=== PATIENT | male | born 1940 | race Caucasian/White ===

== ENCOUNTER → 2016-08-29 | Outpatient (CLI) | payer BC ==
[~2016-08-29] MED LIST: ALBU18002 INH; ALBUAER2 INH; ASPI81TA28 PO; CYAN10005 PO; FLV1 PO; FRS/40 PO; IPRA1AER2 INH; MAGN400T6 PO; MAGNESIUM OXIDE PO; METO-217 PO; MULT-506 PO; NTRGSL/4 SL; OMEG10007 PO; ONDA8TAB7 PO; PANT1TAB48 PO; POTA20TA16 PO; PRED20TA PO; Prednisone PO; RANI300T2 PO; RANO500T PO; SIMV20TA2 PO; SYMIN160 INH; TIOT1AER2 INH; VALA500T60 PO; VNTHFA/IN INH; iron tab
[2016-08-29 12:23] LABS: BASO % 0.4 %; BASO ABS # 0.03 K/uL (0-0.2); COMPLETE YES; EOS % 0.5 %; HEMATOCRIT 44.5 % (42-52); IG% 0.3 %; LYMPH % 18.8 %; LYMPH ABS # 1.39 K/uL (1.2-3.4); MEAN CELL VOLUME 90.4 fL (80-100); MEAN CORPUSCULAR HEMOGLOBIN 32.7 pg (25-34); MEAN CORPUSCULAR HGB CONC 36.2 g/dl (32-36); MONO % 9.2 %; NEUT % 70.8 %; PLATELET COUNT 230 K/uL (130-400); RED BLOOD COUNT 4.92 M/uL (4.7-6.1)
[2016-08-29 12:34] LABS: ALT/SGPT 28 U/L (12-78); BLOOD UREA NITROGEN 26 mg/dl (7-18); BUN/CREATININE RATIO 17.1 (10-20); CALCIUM 9.7 mg/dl (8.5-10.1); CARBON DIOXIDE 21 mmol/L (21-32); CHLORIDE 105 mmol/L (98-107); GLUCOSE 130 mg/dl (70-99); POTASSIUM 3.7 mmol/L (3.5-5.1); SODIUM 139 mmol/L (136-145)
[2016-08-29 12:41] LABS: ALB/GLOB RATIO 1.2 (0.9-2); ALKALINE PHOSPHATASE 43 U/L (45-117); AST/SGOT 12 U/L (15-37)
== END | disposition home or self-care (01) ==
LOC: C.LABBFT 10:12
PROVIDERS: ATTEND Internal Medicine Hematology & Oncology
DX: C34.11 Malignant neoplasm of upper lobe, right bronchus or lung (principal)

== ENCOUNTER → 2016-08-29 | Outpatient (CLI) | payer BC ==
--- NOTE | 2016-08-29 11:52 | DIAGNOSTIC IMAGING REPORT ---
CHEST 2 VIEWS ROUTINE CLINICAL HISTORY: Non-small cell lung cancer. COMPARISON STUDY: Chest CT May 20, 2016 and chest radiograph July 05, 2016. FINDINGS: A left internal jugular [id number] remains in place. The size of the heart is normal. There is no pneumothorax or pleural effusion. Severe emphysema is again noted. There is no consolidation to suggest pneumonia. The irregular right perihilar density is unchanged. IMPRESSION: 1. No acute cardiopulmonary findings. 2. No change in the irregular right perihilar density. 3. Severe emphysema. Electronically signed by: Fran Rothman M.D. 08/29/2016 11:51 AM Dictated Date/Time: 08/29/2016 11:49 AM
== END | disposition home or self-care (01) ==
LOC: C.RAD 10:48
PROVIDERS: ATTEND Internal Medicine Hematology & Oncology
DX: C34.11 Malignant neoplasm of upper lobe, right bronchus or lung (principal); J43.9 Emphysema, unspecified

== ENCOUNTER → 2016-10-27 | Outpatient (CLI) | payer BC ==
--- NOTE | 2016-10-27 10:50 | DIAGNOSTIC IMAGING REPORT ---
CHEST CT WITHOUT CONTRAST CT DOSE: 994.03 mGy.cm HISTORY: Lung carcinoma LUNG CA NO ORAL OR IV, PT REFUSED ORAL CONTRAST TECHNIQUE: Multiaxial CT images of the chest were performed without contrast. COMPARISON: None. FINDINGS: Emphysematous change considered baseline in this patient throughout both hemithoraces. Improving bibasilar peripheral interstitial and/or fibrotic change. Slight improvement in the patient's right hilar mass with a decrease in maximum dimension to approximately 2.0 cm. This is diminished from 2.4 cm. Atelectatic change anterior aspect right middle lobe medially is improved. Minimal parenchymal nodularity is nonprogressive. Several hepatic cysts as well as renal cysts appear unchanged. Placement of an abdominal aortic stent with intraluminal catheters are present IMPRESSION: 1. Mild improvement of the patient's right hilar mass with improvement perihilar fibrotic and postobstructive change. Improving bibasilar interstitial and peripheral reticular nodular-type change. Stable minimal parenchymal nodularity Electronically signed by: Zacarias Wong M.D. 10/27/2016 10:49 AM Dictated Date/Time: 10/27/2016 10:42 AM
--- NOTE | 2016-10-27 10:52 | DIAGNOSTIC IMAGING REPORT ---
CT SCAN OF THE ABDOMEN AND PELVIS WITHOUT CONTRAST CLINICAL HISTORY: Non-small cell lung carcinoma COMPARISON STUDY: 05/20/2016 TECHNIQUE: CT scan of the abdomen and pelvis was performed from the lung bases to the proximal femurs. Images are reviewed in the axial, sagittal, and coronal planes. IV contrast was not administered for this examination. CT DOSE: FINDINGS: Lower chest: There is underlying pulmonary emphysema. Liver: There are multiple hypodense hepatic lesions which approach water attenuation likely represent cysts. Gallbladder: Unremarkable. Spleen: Normal in size and attenuation. Pancreas: Unremarkable. Adrenal glands: Unremarkable. Kidneys: Bilateral renal calcifications are likely vascular. There are multiple right renal cysts. The largest measures 6.7 cm. Bowel: There are no transition zones indicate bowel obstruction. The appendix appears normal. There is diverticulosis. There are no acute peridiverticular inflammatory changes. Peritoneum: There is no intraperitoneal free air or abdominal ascites. There is a fat-containing left inguinal hernia. Vasculature: There is an abdominal aortic aneurysm status post aortoiliac stent graft repair.. Adenopathy: None. Pelvic viscera: There are multiple surgical clips in the pelvis. The patient appears be status post a prostatectomy. Skeletal structures: No destructive osseous lesions are seen. IMPRESSION: No evidence of metastatic disease given the limitations of a noncontrast study. Electronically signed by: Fabián Chandler M.D. 10/27/2016 10:51 AM Dictated Date/Time: 10/27/2016 10:46 AM
== END | disposition home or self-care (01) ==
LOC: C.CTS 10:00
PROVIDERS: ATTEND Internal Medicine Hematology & Oncology
DX: C34.11 Malignant neoplasm of upper lobe, right bronchus or lung (principal)

== ENCOUNTER → 2016-10-31 | Outpatient (CLI) | payer BC ==
[2016-10-31 12:11] LABS: BASO ABS # 0.05 K/uL (0-0.2); COMPLETE YES; EOS % 4.3 %; HEMATOCRIT 42.7 % (42-52); IG% 0.2 %; LYMPH % 25.1 %; LYMPH ABS # 1.22 K/uL (1.2-3.4); MEAN CELL VOLUME 93.2 fL (80-100); MEAN CORPUSCULAR HEMOGLOBIN 32.1 pg (25-34); MEAN CORPUSCULAR HGB CONC 34.4 g/dl (32-36); MEAN PLATELET VOLUME 10.2 fL (7.4-10.4); MONO % 11.7 %; NEUT % 57.7 %; PLATELET COUNT 174 K/uL (130-400); RED BLOOD COUNT 4.58 M/uL (4.7-6.1); WHITE BLOOD COUNT 4.86 K/uL (4.8-10.8)
[2016-10-31 12:30] LABS: ALB/GLOB RATIO 1.2 (0.9-2); ALKALINE PHOSPHATASE 40 U/L (45-117); ALT/SGPT 30 U/L (12-78); AST/SGOT 20 U/L (15-37); BLOOD UREA NITROGEN 26 mg/dl (7-18); CALCIUM 8.7 mg/dl (8.5-10.1); CARBON DIOXIDE 24 mmol/L (21-32); CHLORIDE 109 mmol/L (98-107); CHOLESTEROL 190 mg/dl (0-200); CHOLESTEROL/HDL RATIO 2.9; GLUCOSE 99 mg/dl (70-99); HDL CHOLESTEROL 65 mg/dl; LDL CHOLESTEROL CALCULATED 109 mg/dl; POTASSIUM 4.1 mmol/L (3.5-5.1); SODIUM 142 mmol/L (136-145); TRIGLYCERIDES 80 mg/dl (0-150); VERY LOW DENSITY LIPOPROT CALC 16 mg/dl
== END | disposition home or self-care (01) ==
LOC: C.LABBFT 09:05
PROVIDERS: ATTEND Internal Medicine Hematology & Oncology
DX: C34.11 Malignant neoplasm of upper lobe, right bronchus or lung (principal); E78.00 Pure hypercholesterolemia, unspecified

== ENCOUNTER → 2016-11-29 | Outpatient (CLI) | payer BC | END | disposition home or self-care (01) | LOC: C.LABBFT 12:12 | PROVIDERS: ATTEND Nurse Practitioner | DX: R51 Headache (principal); L98.9 Disorder of the skin and subcutaneous tissue, unspecified ==

== ENCOUNTER → 2016-12-01 | Outpatient (CLI) | payer BC | END | disposition home or self-care (01) | LOC: C.PATHSPEC 17:42 | PROVIDERS: ATTEND Dermatology | DX: C44.310 Basal cell carcinoma of skin of unspecified parts of face (principal) ==

== ENCOUNTER → 2017-01-03 | Outpatient (CLI) | payer BC ==
--- NOTE | 2017-01-03 15:35 | DIAGNOSTIC IMAGING REPORT ---
CHEST 2 VIEWS ROUTINE CLINICAL HISTORY: J44.1 COPD WITH EXACERBATION NON-SMALL CELL LUNG CARCINOMA COMPARISON STUDY: 08/29/2016 FINDINGS: There is radiographic evidence of emphysema. There is a left-sided A-Port catheter unchanged in position. There are right perihilar fibrotic changes, consistent with the patient's known treated right hilar mass. There is no acute parenchymal consolidation. There is no failure. There are no pleural effusions.[ IMPRESSION: 1. Emphysema 2. Increased density of the right hilum with perihilar fibrotic changes, consistent with the history of the patient's known treated right hilar mass 3. No evidence of acute parenchymal consolidation Electronically signed by: Fabián Chandler M.D. 01/03/2017 3:34 PM Dictated Date/Time: 01/03/2017 3:32 PM
== END | disposition home or self-care (01) ==
LOC: C.RAD 14:54
PROVIDERS: ATTEND Nurse Practitioner
DX: J44.1 Chronic obstructive pulmonary disease with (acute) exacerbation (principal)

== ENCOUNTER → 2017-01-12 | Outpatient (CLI) | payer BC ==
--- NOTE | 2017-01-12 14:36 | DIAGNOSTIC IMAGING REPORT ---
CT ABD/PELVIS IV CONTRAST ONLY CLINICAL HISTORY: NON SMALL CELL LUNG CA LEG SWELLING. POSSIBLE IVC THROMBUS. COMPARISON STUDY: 10/27/2016 TECHNIQUE: Following the IV administration of 118 mL of Optiray-320, CT scan of the abdomen and pelvis was performed from the lung bases to the proximal femurs. Images are reviewed in the axial, sagittal, and coronal planes. IV contrast was administered without complication. CT DOSE: FINDINGS: Lower chest: There is pulmonary emphysema. There is no focal pulmonary consolidation. There are no pleural effusions. Liver: There is scattered hepatic hypodensities. These approach water attenuation and are felt to represent cysts. The largest is located within the left lobe measuring 21 mm. Gallbladder: There is borderline gallbladder wall thickening. No calculi are visualized. Spleen: Normal in size and attenuation. Pancreas: Unremarkable. Adrenal glands: Unremarkable. Kidneys: There is a stable 3 mm left renal calcification, likely vascular. There are bilateral renal cysts the largest of which measures 6.8 cm arises from the right kidney. No solid renal masses are visualized. There is no hydronephrosis. Bowel: There are no transition zone to indicate bowel obstruction. The appendix appears normal. There is colonic diverticulosis. There are no acute peridiverticular inflammatory changes. Peritoneum: There is no intraperitoneal free air or abdominal ascites. Vasculature: The patient is status post stent graft repair of an abdominal aortic aneurysm. The [place] aneurysm is thrombosed and measures 4.7 cm in diameter. No IVC thrombus is visualized. Adenopathy: None. Pelvic viscera: There are postsurgical changes are prior prostatectomy Skeletal structures: No destructive osseous lesions are seen. IMPRESSION: No significant change from the preceding study. No evidence of metastatic disease within the abdomen or pelvis. No evidence of IVC or iliac vein thrombus. Electronically signed by: Fabián Chandler M.D. 01/12/2017 2:35 PM Dictated Date/Time: 01/12/2017 2:29 PM
--- NOTE | 2017-01-12 15:02 | DIAGNOSTIC IMAGING REPORT ---
CT OF THE CHEST WITH IV CONTRAST CLINICAL HISTORY: Non-small cell lung cancer. COMPARISON STUDY: Chest CT October 27, 2016 and chest radiograph January 03, 2017. TECHNIQUE: Following IV administration of 118 mL of Optiray-320, helical axial images of the chest were obtained. Images were viewed in the axial, sagittal and coronal planes. IV contrast was administered without complication. FINDINGS: No enlarged axillary, mediastinal or hilar lymph nodes are present. The size pg the heart is normal. There is extensive coronary artery calcification. There is no pericardial effusion. Right hilar opacity with distortion is unchanged since exams dating back to January 26, 2015. This is post therapeutic. The appearance of the chest is unchanged. Severe emphysema is noted. A few right apical nodules are unchanged and suggest scarring. Central airways are patent. No central pulmonary emboli are identified. No suspicious osseous lesions are present. Visualized portions of the upper abdomen demonstrate multiple hepatic and right renal cysts. The abdomen and pelvis will be reported separately. Endovascular aortic stent graft is partially imaged. IMPRESSION: 1. No evidence of recurrent malignancy within the chest. Stable right paramediastinal/perihilar opacity with distortion which suggests pos radiation change. 2. No acute intrathoracic findings. 3. Severe emphysema. 4. Extensive coronary artery disease. Electronically signed by: Fran Rothman M.D. 01/12/2017 3:01 PM Dictated Date/Time: 01/12/2017 2:49 PM
== END | disposition home or self-care (01) ==
LOC: C.CTS 13:47
PROVIDERS: ATTEND Internal Medicine Hematology & Oncology
DX: C34.11 Malignant neoplasm of upper lobe, right bronchus or lung (principal); R91.8 Other nonspecific abnormal finding of lung field; J43.9 Emphysema, unspecified; I25.10 Atherosclerotic heart disease of native coronary artery without angina pectoris; R60.0 Localized edema

== ENCOUNTER → 2017-01-30 | Outpatient (CLI) | payer BC ==
[2017-01-30 12:49] LABS: BASO % 0.6 %; BASO ABS # 0.03 K/uL (0-0.2); COMPLETE YES; EOS % 5.1 %; HEMATOCRIT 42.1 % (42-52); IG% 0.2 %; LYMPH % 24.8 %; LYMPH ABS # 1.27 K/uL (1.2-3.4); MEAN CORPUSCULAR HEMOGLOBIN 32.8 pg (25-34); MEAN CORPUSCULAR HGB CONC 34.9 g/dl (32-36); MEAN PLATELET VOLUME 9.9 fL (7.4-10.4); MONO % 15.2 %; NEUT % 54.1 %; PLATELET COUNT 172 K/uL (130-400); RED BLOOD COUNT 4.48 M/uL (4.7-6.1); WHITE BLOOD COUNT 5.12 K/uL (4.8-10.8)
[2017-01-30 14:33] LABS: CALCIUM 9.2 mg/dl (8.5-10.1)
[2017-01-30 14:34] LABS: ALT/SGPT 28 U/L (12-78); AST/SGOT 19 U/L (15-37); BLOOD UREA NITROGEN 29 mg/dl (7-18); BUN/CREATININE RATIO 19.7 (10-20); CARBON DIOXIDE 26 mmol/L (21-32); CHLORIDE 108 mmol/L (98-107); GLUCOSE 99 mg/dl (70-99); POTASSIUM 3.9 mmol/L (3.5-5.1); SODIUM 142 mmol/L (136-145)
[2017-01-30 14:36] LABS: ALB/GLOB RATIO 1.1 (0.9-2); ALKALINE PHOSPHATASE 51 U/L (45-117)
== END | disposition home or self-care (01) ==
LOC: C.LABBFT 08:18
PROVIDERS: ATTEND Internal Medicine Hematology & Oncology
DX: C34.11 Malignant neoplasm of upper lobe, right bronchus or lung (principal)

== ENCOUNTER → 2017-02-17 | Day surgery (SDC) | payer BC ==
[~2017-02-17] VITALS: Ht 175.3 cm; Wt 80.0 kg
[~2017-02-17] MED LIST changes: +FENTANYL CITRATE INJ 50 MCG/1 ML 2 ML VIAL ONE; +HEPARIN SOD (PORCINE) 1000 UNIT/ML 10 ML VIAL ONE; +MIDAZOLAM HCL 1 MG/ML 2ML VIAL ONE; +NITROGLYCERIN/D5W 100MCG/ML 20ML SYR ONE; +NiCARDipine HCL INJ 2.5 MG/ML 10 ML AMP ONE
[2017-02-17 07:20] VITALS: BP 175/93; PULSE 94; TEMP 36.5; O2SAT 93; Ht 175.3 cm; Wt 80.0 kg
--- NOTE | 2017-02-17 08:04 | History & Physical Bridge Note ---
H&P Re-Evaluation Bridge Note: I have examined the patient, reviewed the History & Physical and in the interval since the performance of the History & Physical I have noted the following changes of clinical significance: No changes noted
--- NOTE | 2017-02-17 08:05 | Procedure Note ---
Pre-Mod Sedation Assessment General Date of Moderate Sedation: Feb 17, 2017. Vital Signs: Vital Signs Past 12 Hours Date Time Temp Pulse Resp B/P (MAP) Pulse Ox O2 Delivery O2 Flow Rate FiO2 02/17/17 07:20 36.5 94 16 175/93 93 Room Air Review Cardiovascular: regular rate, rhythm, no edema Abdomen: normal bowel sounds, soft Lungs: chest non-tender, lungs clear Airway Class: II Pre-Sedation Airway Assessment Oral Cavity: WNL Able to Visualize Vocal Cords: No Short Thick Neck: No Hx of Sleep Apnea: No Smoking Status: Never Smoker Mallampati Classification: Class II ASA Classification: Class III Procedure Planning Contraindications-for Mod Sed: None Yes Notes The planned sedation has been discussed with the patient and consent obtained. I have identified the patient, determined the appropriateness of sedation and have assessed the patient immediately prior to the procedure. All medicine(s) and interventions are by my order.
--- NOTE | 2017-02-17 09:07 | Procedure Note ---
Post-Mod Sedation Assessment General Date of Moderate Sedation Feb 17, 2017. Vital Signs: Vital Signs Past 12 Hours Date Time Temp Pulse Resp B/P (MAP) Pulse Ox O2 Delivery O2 Flow Rate FiO2 02/17/17 07:20 36.5 94 16 175/93 93 Room Air Review - Discharge Criteria Vital Signs Stable: Yes Alert/Oriented/Conversant: Yes Returned to Baseline Mental St: Yes Nausea Absent/Minimal: Yes Pain/Discomfort/Absent/Minimal: Yes Active Bleeding?: No Pt Received D/C Instructions: N/A Prescriptions Given: None Specific Proced. D/C Criteria Distal Pulses Present (Cardiac: Yes Groin site assessed-Card Cath: N/A Voided Prior To Discharge: N/A Discharged Patients Adult Escort/Transportation: Yes
--- NOTE | 2017-02-17 09:32 | Cardiac Catheterization ---
Procedure Note Procedure Date Feb 17, 2017. Pre-Procedure Diagnosis Positive Stress Test AUC Score 7 Post-Procedure Diagnosis Severe CAD Procedure(s) Performed Coronary Angiography, Left Heart Cath Shopping Inspector Jorge Product Manager(s) Guerda Estimated Blood Loss 12 Medication(s) Fentanyl, Heparin, Nitroglycerin, Versed, Lidocaine 1% Summary of Findings Indication: Chest pain/positive stress test Access: 6Fr Slender Right Radial Artery Catheters: [place], Pigtail Findings: LM - 30% ostial LM, 40% distal stenosis (unchanged from 2013) LAD - Mildly calcified proximally with 20% stenosis, focal 95+% in mid segment with significant calcium, luminal irregularities distal as wraps around apex with NOEMI 3 flow (unchanged from 2013). 1st diagonal with 40% proximal stenosis. Circumflex - Non-dominant, 20% mid stenosis after take-off of high OM1; OM1 with luminal irregularities RCA - Dominant, moderately calcified, 50% proximal stenosis, diffuse 20-30% disease in mid to distal vessel; luminal irregularities in small PDA, mild disease in R-PLB. LVEDP - 6 Arterial Closure: TR Band Summary: 1. Severe single vessel coronary artery disease - 95% calcified, focal mid LAD - 30-40% LM disease - 50% proximal RCA disease 2. Normal intracardiac filling pressure Recommendations: CAD largely unchanged from 2013. LV filling pressures normal. With overall preserved LV function recommend continued medical management. If recurrent typical angina consider PCI of focal mid LAD (could be attempted here or referred to tertiary center), +/- FFR of RCA Continue current antianginals, and ASCVD risk factor modification Close follow-up with Cardiology in 3-4 weeks. Hemodynamics Rest Ao: 104/66 (83) Final Ao: 120/66 (89) LV: 122/6 Recommendations Medical therapy and/or Counseling Specimens None Radiation Exposure (mGy) 749 Contrast (mls) 50 Visi Fluids (cc crystalloids) 48 NSS Drains None Anesthesia Moderate Procedural Complication(s) None Disposition Skills Instructor Holding/Recovery ACC Data Cardiac Status Clinical evaluation leading to the procedure CAD Presntation: Positive Stress Test Anginal Classification: CCS III Heart Failure: No, NYHA Class: CCS I Cardiogenic Shock w/in 24Hrs: No Cardiac Arrest w/in 24Hrs: No Imaging studies past 6 months: Yes Stress studies past 6 months: Yes Standard Exercise Stress Test: No Stress Echocardiogram: Yes - Positive, Risk/Extent of Ischemia (Intermediate) Stress Testing w/SPECT MPI: No Cardiac CTA: No Coronary Anatomy Dominant: Right Left Main (% Stenosis): Ostial (30), Distal (40) LAD (% Stenosis): Mid (95) Circumflex (% Stenosis): Normal RCA (% Stenosis): Proximal (50) Diagnostic Physician's Name: Javier Patel MD Status: Elective Closure Device Percutaneous Entry Location: Radial Closure Device: Radial Band Recommendations: Medical therapy and/or Counseling Intraprocedure Events Significant Dissection: No Perforation: No
--- NOTE | 2017-02-17 09:35 | Discharge Instructions ---
Discharge Instructions Procedure Procedure Date: Feb 17, 2017. Reason for Visit: Sob; Chest Pain * To Do*. Discharge Discharge Date: Feb 17, 2017. Discharge Diagnosis: Coronary artery disease Last Recorded Wt (Kilograms): 80 Anesthesia Post Anesthesia Instructions: If you have had IV Sedation: * Do not drive today. * Resume driving when surgeon permits. * Do not make important decisions or sign legal documents today. * Call surgeon for: 1. Temperature elevations greater than 101 degrees F. 2. Uncontrollable pain. 3. Excessive bleeding. 4. Persistent nausea and vomiting. 5. Medication intolerance (nausea, vomiting or rash). * For nausea and vomiting use only clear liquids such as: tea, soda, bouillon until nausea subsides, then gradually increase diet as tolerated. * If you have any concerns or questions, call your surgeon's office. If physician is unavailable and it is an emergency, call 911 or go to the nearest emergency room. Instructions Activity Recommendations: limitations as noted below Recommended Home Diet: resume previous diet Allergies: Coded Allergies: Amoxicillin (Unverified Allergy, Intermediate, unk, 02/17/17) Clavulanic Acid (Unverified Allergy, Intermediate, unk, 02/17/17) Levofloxacin (Unverified Allergy, Intermediate, unk, 02/17/17) Nitrofurantoin (Verified Allergy, Intermediate, Rash, 08/25/15) Sulfisoxazole (Unverified Allergy, Intermediate, unk, 02/17/17) Latex1 -Allergic Contact Dermititis (Verified Allergy, Unknown, 08/25/15) Adhesives (Verified Adverse Reaction, Severe, WELTS, 08/25/15) Follow Up Additional Instructions: ACTIVITY RECOMMENDATIONS: It is common to feel weak and fatigue for a few days. * Do not drive or operate any motorized equipment for the next three days. * Limit stair usage (2 or 3 trips a day only) for the next 2 days. * Do not lift anything heavier than 10 pounds for the next 2 days. * Do not engage in vigorous exercise or any sports for the next five days. * You may shower the day after your procedure, but do not immerse the area for three days. Cleanse the site gently with soap and water. SPECIAL CARE INSTRUCTIONS: * You may replace the pressure dressing or band-aid the morning after the procedure. * After your procedure, it is normal to have a small bruise or small lump at the site. Examine your site daily for any change in the bruise or lump, redness, swelling, drainage or numbness. Notify your doctor if any change. BLEEDING: * If there is a small amount of bleeding at the site, lie down and apply firm pressure with a clean cloth for ten minutes. When the bleeding stops, lie quietly keeping the procedure limb straight for six hours. Notify your doctor as soon as possible. * If the bleeding does not stop after ten minutes or if there is a large amount of bleeding or spurting, call 911 immediately. Continue to lie down and hold firm pressure until help arrives. SKIN IRRITATION: * You may experience some redness and/or swelling in the area where radiation was administered. If any skin irritation occurs, please contact your family physician. FOLLOW UP VISIT: Keep any scheduled doctor appointments. Follow-up with: CardiologyAdrianna in 3-4 weeks. Darien Wynn Recommendations: Call your doctor if: * Temperature above 101 degrees * Pain not relieved by pain medicine ordered * There is increased drainage or redness from any incision * You have any unanswered questions or concerns. Your Doctors Instructions noted above were prepared by provider Neo Patel. Patient Signature Section: Patient Instructions Signature Page Kevin He Patient (or Guardian) Signature/Date: I have read and understand the instructions given to me by my caregivers. Caregiver/RN/Doctor Signature/Date: The above-named patient and/or guardian has received patient instructions on this date. + Original Patient Signature Page (only) stays with chart. Please make copy for patient.
[2017-02-17 11:15] VITALS: BP 128/82; PULSE 68; O2SAT 93
== END | disposition home or self-care (01) ==
LOC: C.CATH 07:13
PROVIDERS: ATTEND Internal Medicine Interventional Cardiology
DX: I25.10 Atherosclerotic heart disease of native coronary artery without angina pectoris (principal); R06.09 Other forms of dyspnea; R60.0 Localized edema; I25.118 Atherosclerotic heart disease of native coronary artery with other forms of angina pectoris; J44.9 Chronic obstructive pulmonary disease, unspecified; I71.4 Abdominal aortic aneurysm, without rupture; I51.9 Heart disease, unspecified; Z85.820 Personal history of malignant melanoma of skin; K21.9 Gastro-esophageal reflux disease without esophagitis; E78.00 Pure hypercholesterolemia, unspecified; Z85.118 Personal history of other malignant neoplasm of bronchus and lung; Z85.46 Personal history of malignant neoplasm of prostate; Z80.41 Family history of malignant neoplasm of ovary; Z82.49 Family history of ischemic heart disease and other diseases of the circulatory system; Z83.2 Family history of diseases of the blood and blood-forming organs and certain disorders involving the immune mechanism; Z98.49 Cataract extraction status, unspecified eye; Z87.891 Personal history of nicotine dependence

== ENCOUNTER → 2017-04-13 | Outpatient (CLI) | payer BC ==
[~2017-04-13] MED LIST changes: -FENTANYL CITRATE INJ 50 MCG/1 ML 2 ML VIAL ONE; -HEPARIN SOD (PORCINE) 1000 UNIT/ML 10 ML VIAL ONE; -MAGNESIUM OXIDE PO; -MIDAZOLAM HCL 1 MG/ML 2ML VIAL ONE; -NITROGLYCERIN/D5W 100MCG/ML 20ML SYR ONE; -NiCARDipine HCL INJ 2.5 MG/ML 10 ML AMP ONE; -Prednisone PO; -TIOT1AER2 INH; -VNTHFA/IN INH
[2017-04-13 13:12] LABS: ALT/SGPT 33 U/L (12-78); AST/SGOT 21 U/L (15-37); BLOOD UREA NITROGEN 14 mg/dl (7-18); CALCIUM 9.8 mg/dl (8.5-10.1); CARBON DIOXIDE 24 mmol/L (21-32); CHLORIDE 107 mmol/L (98-107); CHOLESTEROL 215 mg/dl (0-200); GLUCOSE 102 mg/dl (70-99); POTASSIUM 4.1 mmol/L (3.5-5.1); SODIUM 138 mmol/L (136-145); TRIGLYCERIDES 67 mg/dl (0-150); VERY LOW DENSITY LIPOPROT CALC 13 mg/dl
[2017-04-13 13:16] LABS: ALB/GLOB RATIO 1.3 (0.9-2); ALKALINE PHOSPHATASE 43 U/L (45-117); CHOLESTEROL/HDL RATIO 2.8; HDL CHOLESTEROL 77 mg/dl; LDL CHOLESTEROL CALCULATED 125 mg/dl; PROSTATE SPECIFIC ANTIGEN < 0.010 ng/ml (0.000-4.000); TOTAL IRON BINDING CAPACITY 324 mcg/dl (250-450)
== END | disposition home or self-care (01) ==
LOC: C.LABBFT 07:57
PROVIDERS: ATTEND Internal Medicine
DX: E78.00 Pure hypercholesterolemia, unspecified (principal); C61 Malignant neoplasm of prostate; I25.10 Atherosclerotic heart disease of native coronary artery without angina pectoris; R73.01 Impaired fasting glucose; R60.0 Localized edema

== ENCOUNTER → 2017-05-01 | Outpatient (CLI) | payer BC ==
[~2017-05-01] MED LIST changes: +OPTIRAY 320 IV PRN
--- NOTE | 2017-05-01 14:22 | DIAGNOSTIC IMAGING REPORT ---
ABD/PELVIS NO IV OR ORAL CONT CLINICAL HISTORY: 77 years-old Male presenting with lung cancer follow-up. TECHNIQUE: Multidetector CT of the abdomen and pelvis was performed without the use of intravenous contrast. IV contrast: None. A dose lowering technique was used consistent with the principles of ALARA (as low as reasonably achievable). COMPARISON: 01/12/2017. CT DOSE (mGy.cm): The estimated cumulative dose is 1606.63. FINDINGS: Antisqueak Worker topogram: Surgical clips noted in the pelvis. Lung bases: Emphysema. Normal heart size. Coronary artery calcification. No pericardial or pleural effusion. Liver: Normal morphology. Multiple hypodensities in the liver are incompletely characterized without intravenous contrast but unchanged from prior, likely hepatic cysts. Biliary: No gross biliary ductal dilatation allowing for noncontrast technique. Normal gallbladder. Pancreas: Mild parenchymal atrophy. Spleen: Normal noncontrast appearance. Adrenal glands: Normal noncontrast appearance. Kidneys and ureters: Exophytic low-density lesions arising from the right kidney likely cysts. No hydronephrosis. Renal vascular calcifications noted. Ureters normal. Bladder: Normal. Pelvic organs: Postsurgical changes of prostatectomy. Bowel: Diverticulosis of the descending and sigmoid colon. Normal appendix. Duodenal diverticulum noted. Peritoneal cavity: No free fluid or intraperitoneal gas. Vasculature: Atherosclerosis of the abdominal aorta which also demonstrates aneurysmal dilatation of the infrarenal portion measuring up to 4.5 cm in maximal transverse dimension, previously 4.7 cm. An aortobiiliac stent grafting is in place. 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 Lymph nodes: No enlarged lymph nodes in the abdomen or pelvis. Abdominal wall: Left fat-containing inguinal hernia. Fat-containing umbilical hernia. Musculoskeletal: Degenerative changes of the spine. IMPRESSION: 1. Noncontrast examination significantly limits evaluation for metastatic disease. Within this limitation, stable examination. No lymphadenopathy. 2. Postsurgical changes of prostatectomy. 3. Aortobiiliac stent graft across the infrarenal abdominal aortic aneurysm, which is stable to slightly decreased in size. 4. Emphysema. Electronically signed by: Anil Ladd M.D. 05/01/2017 2:20 PM Dictated Date/Time: 05/01/2017 2:13 PM
--- NOTE | 2017-05-01 14:26 | DIAGNOSTIC IMAGING REPORT ---
(CHEST) THORAX WITHOUT CT DOSE: 1606.63 mGycm HISTORY: Lung cancer. Follow-up. TECHNIQUE: Multiaxial CT images of the chest were performed without contrast. A dose lowering technique was utilized adhering to the principles of ALARA. COMPARISON: Chest CT 01/12/2017. FINDINGS: No enlarged axillary, mediastinal or hilar lymph nodes are present. There is extensive coronary artery calcification, unchanged. There is no pericardial effusion. Right hilar opacity with distortion also remains unchanged. This likely represents post radiation paramediastinal fibrosis. Severe emphysema is noted. A few small right apical densities are unchanged and suggest scarring. Central airways are patent. The central pulmonary arteries are patent. No suspicious osseous lesions are present. Visualized portions of the upper abdomen demonstrate multiple hepatic and right renal cysts. The abdomen and pelvis will be reported separately. Endovascular aortic stent graft is partially imaged. Small amount of mucoid material within the right mainstem bronchus. Left jugular Port-A-Cath terminates in the SVC. IMPRESSION: 1. No evidence of recurrent malignancy within the chest. Stable right paramediastinal/perihilar opacity with distortion which suggests postradiation change. 2.Severe emphysema. Electronically signed by: Gunner Alvarado M.D. 05/01/2017 2:24 PM Dictated Date/Time: 05/01/2017 2:11 PM
== END | disposition home or self-care (01) ==
LOC: C.CTS 13:37
PROVIDERS: ATTEND Internal Medicine Hematology & Oncology
DX: Z08 Encounter for follow-up examination after completed treatment for malignant neoplasm (principal); Z85.118 Personal history of other malignant neoplasm of bronchus and lung; J43.9 Emphysema, unspecified; Z90.79 Acquired absence of other genital organ(s); Z95.828 Presence of other vascular implants and grafts

== ENCOUNTER → 2017-08-14 | Outpatient (CLI) | payer BC ==
[~2017-08-14] MED LIST changes: -OPTIRAY 320 IV PRN; +PANT1TAB3 PO; -PANT1TAB48 PO
--- NOTE | 2017-08-14 09:28 | DIAGNOSTIC IMAGING REPORT ---
(CHEST) THORAX WITHOUT CLINICAL HISTORY: Lung carcinoma COMPARISON STUDY: 05/01/2017 CT DOSE: TECHNIQUE: CT of the thorax was performed from the thoracic inlet to the lung bases. Images are reviewed in the axial, sagittal, and coronal planes. IV contrast was not administered for this examination. A dose lowering technique was utilized adhering to the principles of ALARA. FINDINGS: Thyroid: Imaged portions of the thyroid gland are normal in appearance. Thoracic aorta: The thoracic aorta is normal in course and caliber, noting standard 3 vessel arch anatomy. Heart: There are coronary artery calcifications present. There is a left internal jugular A-Port catheter present. Lungs and pleural spaces: There is pulmonary emphysema. 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 There is a 5 mm right middle lobe subpleural nodule. This remains unchanged from January 2017. Additional scattered tiny nodules are visualized, also unchanged. No new or enlarging pulmonary masses are visualized. Mediastinum: There is no evidence of pathologic mediastinal lymphadenopathy Kimi: There is no evidence of pathologic hilar adenopathy given the limitations of a noncontrast study Axilla: There is no evidence of pathologic axillary lymphadenopathy. Upper abdomen: The patient is status post aortic endograft stenting. There is a 7.3 cm upper pole right renal cyst. A 21 mm right renal hypodensity slightly exceeds water attenuation but was present on the prior study and likely represents a slightly hyperdense cyst. Multiple hepatic hypodensities remain stable and likely represent cysts. Skeletal structures: There are no lytic or blastic osseous lesions. IMPRESSION: 1. 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 2. Severe emphysema 3. No evidence of recurrent malignancy Electronically signed by: Fabián Chandler M.D. 08/14/2017 9:27 AM Dictated Date/Time: 08/14/2017 9:19 AM
--- NOTE | 2017-08-14 09:32 | DIAGNOSTIC IMAGING REPORT ---
CT SCAN OF THE ABDOMEN AND PELVIS WITHOUT CONTRAST CLINICAL HISTORY: Lung carcinoma COMPARISON STUDY: 05/01/2017 TECHNIQUE: CT scan of the abdomen and pelvis was performed from the lung bases to the proximal femurs. Images are reviewed in the axial, sagittal, and coronal planes. IV contrast was not administered for this examination. A dose lowering technique was utilized adhering to the principles of ALARA. CT DOSE: 1454.09 mGy.cm FINDINGS: Lower chest: There is pulmonary emphysema. Liver: Left lobe hypodense hepatic lesions remain stable. These approach water attenuation likely represent cysts Gallbladder: Unremarkable. Spleen: Normal in size and attenuation. Pancreas: Unremarkable. Adrenal glands: Unremarkable. Kidneys: No renal calculi are visualized. There are multiple right renal hypodensities likely representing cysts. The largest measures 7.1 cm. Bowel: There are no transition zones indicate bowel obstruction. The appendix appears normal. There is colonic diverticulosis. No acute peridiverticular inflammatory changes are visualized. Peritoneum: There is no intraperitoneal free air or abdominal ascites. There is a small fat-containing left inguinal hernia. There is a small fat-containing umbilical hernia. Vasculature: There is an abdominal aortic aneurysm status post aortobiiliac stent grafting. Adenopathy: None. Pelvic viscera: There are postsurgical changes are prior prostatectomy Skeletal structures: No destructive osseous lesions are seen. IMPRESSION: No significant change from the preceding study. No evidence of metastatic disease. Electronically signed by: Fabián Chandler M.D. 08/14/2017 9:30 AM Dictated Date/Time: 08/14/2017 9:27 AM
[2017-08-14 09:44] LABS: BASO ABS # 0.05 K/uL (0-0.2); EOS % 2.9 %; EOS ABS # 0.14 K/uL (0-0.5); HEMATOCRIT 41.4 % (42-52); HEMOGLOBIN 14.4 g/dL (14.0-18.0); LYMPH % 29.7 %; LYMPH ABS # 1.44 K/uL (1.2-3.4); MEAN CELL VOLUME 93.5 fL (80-100); MEAN CORPUSCULAR HEMOGLOBIN 32.5 pg (25-34); MEAN CORPUSCULAR HGB CONC 34.8 g/dl (32-36); MEAN PLATELET VOLUME 9.8 fL (7.4-10.4); MONO % 10.3 %; NEUT % 56.1 %; NEUT ABS # 2.72 K/uL (1.4-6.5); PLATELET COUNT 179 K/uL (130-400); RED CELL DISTRIBUTION WIDTH CV 14.4 % (11.5-14.5); RED CELL DISTRIBUTION WIDTH SD 48.6 fL (36.4-46.3); WHITE BLOOD COUNT 4.85 K/uL (4.8-10.8)
[2017-08-14 09:57] LABS: ALBUMIN 3.7 gm/dl (3.4-5.0); ALT/SGPT 28 U/L (12-78); BLOOD UREA NITROGEN 24 mg/dl (7-18); CARBON DIOXIDE 27 mmol/L (21-32); GLUCOSE 105 mg/dl (70-99); POTASSIUM 3.9 mmol/L (3.5-5.1); SODIUM 141 mmol/L (136-145)
[2017-08-14 10:00] LABS: ALKALINE PHOSPHATASE 43 U/L (45-117); AST/SGOT 20 U/L (15-37); TOTAL PROTEIN 6.8 gm/dl (6.4-8.2)
== END | disposition home or self-care (01) ==
LOC: C.CTS 08:49
PROVIDERS: ATTEND Internal Medicine Hematology & Oncology
DX: C34.11 Malignant neoplasm of upper lobe, right bronchus or lung (principal)

== ENCOUNTER → 2017-09-04 | Outpatient (CLI) | payer BC ==
--- NOTE | 2017-09-04 12:05 | DIAGNOSTIC IMAGING REPORT ---
CHEST 2 VIEWS ROUTINE CLINICAL HISTORY: Chronic obstructive pulmonary disease. Shortness of breath. Lung cancer. COMPARISON STUDY: Chest CT August 14, 2017. FINDINGS: Lung hyperexpansion with severe emphysema is noted. Right perihilar distortion is similar to prior CT and suggests postradiation change. The appearance of the chest is unchanged. There is no consolidation to suggest superimposed pneumonia. There is no evidence for pulmonary edema. Cardiomediastinal silhouette is unremarkable. Left internal jugular [id number] is in place. IMPRESSION: 1. No acute cardiopulmonary findings. 2. No change in right perihilar opacity with distortion which suggests postradiation change. 3. Severe emphysema. Electronically signed by: Fran Rothman M.D. 09/04/2017 12:04 PM Dictated Date/Time: 09/04/2017 12:02 PM
== END | disposition home or self-care (01) ==
LOC: C.RAD 11:29
PROVIDERS: ATTEND Nurse Practitioner
DX: J44.9 Chronic obstructive pulmonary disease, unspecified (principal); J43.9 Emphysema, unspecified

== ENCOUNTER → 2017-10-06 | Outpatient (CLI) | payer BC ==
[2017-10-06 12:17] LABS: BASO % 0.4 %; BASO ABS # 0.02 K/uL (0-0.2); EOS ABS # 0.11 K/uL (0-0.5); HEMATOCRIT 42.7 % (42-52); HEMOGLOBIN 14.9 g/dL (14.0-18.0); IG# 0.01 K/uL (0.00-0.02); LYMPH ABS # 1.73 K/uL (1.2-3.4); MEAN CELL VOLUME 92.6 fL (80-100); MEAN CORPUSCULAR HEMOGLOBIN 32.3 pg (25-34); MEAN CORPUSCULAR HGB CONC 34.9 g/dl (32-36); MONO % 13.3 %; MONO ABS # 0.72 K/uL (0.11-0.59); NEUT % 52.1 %; NEUT ABS # 2.81 K/uL (1.4-6.5); PLATELET COUNT 168 K/uL (130-400); RED CELL DISTRIBUTION WIDTH CV 13.4 % (11.5-14.5); RED CELL DISTRIBUTION WIDTH SD 45.1 fL (36.4-46.3)
[2017-10-06 12:24] LABS: HEMOGLOBIN A1C 5.6 % (4.5-5.6)
[2017-10-06 12:46] LABS: ALBUMIN 3.5 gm/dl (3.4-5.0); ALT/SGPT 28 U/L (12-78); AST/SGOT 20 U/L (15-37); BLOOD UREA NITROGEN 20 mg/dl (7-18); CARBON DIOXIDE 23 mmol/L (21-32); CHOLESTEROL 189 mg/dl (0-200); CREATININE 1.42 mg/dl (0.60-1.40); GLUCOSE 89 mg/dl (70-99); POTASSIUM 4.1 mmol/L (3.5-5.1); SODIUM 139 mmol/L (136-145)
[2017-10-06 12:49] LABS: ALKALINE PHOSPHATASE 52 U/L (45-117); LDL CHOLESTEROL CALCULATED 107 mg/dl
== END | disposition home or self-care (01) ==
LOC: C.LABBFT 10:02
PROVIDERS: ATTEND Internal Medicine
DX: E78.00 Pure hypercholesterolemia, unspecified (principal); R73.01 Impaired fasting glucose

== ENCOUNTER → 2017-10-10 | Outpatient (CLI) | payer BC | END | disposition home or self-care (01) | LOC: C.LABSPEC 16:27 | PROVIDERS: ATTEND Dermatology | DX: L82.0 Inflamed seborrheic keratosis (principal) ==

== ENCOUNTER → 2017-10-10 | Outpatient (CLI) | payer BC | END | disposition home or self-care (01) | LOC: C.PATHSPEC 16:57 | PROVIDERS: ATTEND Dermatology | DX: L82.1 Other seborrheic keratosis (principal) ==

== ENCOUNTER → 2017-11-06 | Outpatient (CLI) | payer BC ==
--- NOTE | 2017-11-07 07:19 | DIAGNOSTIC IMAGING REPORT ---
ABDOMEN AND PELVIS CT WITHOUT CONTRAST CT DOSE: HISTORY: Lung cancer. TECHNIQUE: Multiaxial CT images of the abdomen and pelvis were performed without contrast. A dose lowering technique was utilized adhering to the principles of ALARA. COMPARISON STUDY: Abdomen and pelvis CT 08/14/2017. FINDINGS: Lower chest: There is pulmonary emphysema. Liver: Left lobe hypodense hepatic lesions remain stable. These approach water attenuation likely represent cysts Gallbladder: Unremarkable. Spleen: Normal in size and attenuation. Pancreas: Unremarkable. Adrenal glands: Unremarkable. Kidneys: No renal calculi are visualized. There are multiple right renal hypodensities likely representing cysts. The largest measures 7.1 cm. Bowel: There are no transition zones indicate bowel obstruction. The appendix appears normal. There is colonic diverticulosis. No acute peridiverticular inflammatory changes are visualized. Peritoneum: There is no intraperitoneal free air or abdominal ascites. There is a small fat-containing left inguinal hernia. There is a small fat-containing umbilical hernia. Vasculature: There is an abdominal aortic aneurysm status post aortobiiliac stent grafting. The aneurysm sac is stable and measures up to 4.7 cm. Adenopathy: None. Pelvic viscera: There are postsurgical changes are prior prostatectomy Skeletal structures: No destructive osseous lesions are seen. IMPRESSION: No significant change from the preceding study. No evidence of metastatic disease. Electronically signed by: Gunner Alvarado M.D. 11/06/2017 1:51 PM Dictated Date/Time: 11/06/2017 1:46 PM
--- NOTE | 2017-11-07 07:19 | DIAGNOSTIC IMAGING REPORT ---
(CHEST) THORAX WITHOUT CT DOSE: 934.17 mGy.cm HISTORY: Lung cancer. Follow-up. TECHNIQUE: Multiaxial CT images of the chest were performed without contrast. A dose lowering technique was utilized adhering to the principles of ALARA. COMPARISON: Chest CT 08/14/2017. FINDINGS:Thyroid: Imaged portions of the thyroid gland are normal in appearance. Thoracic aorta: The thoracic aorta is normal in course and caliber, noting standard 3 vessel arch anatomy. Heart: There are coronary artery calcifications present. There is a left internal jugular A-Port catheter present. Lungs and pleural spaces: There is pulmonary emphysema. 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 There is a 5 mm right middle lobe subpleural nodule. This remains unchanged from January 2017. Additional scattered tiny nodules are visualized, also unchanged. No new or enlarging pulmonary masses are visualized. Stable scarlike density within the right lung apex. Mediastinum: There is no evidence of pathologic mediastinal lymphadenopathy Kimi: There is no evidence of pathologic hilar adenopathy given the limitations of a noncontrast study Axilla: There is no evidence of pathologic axillary lymphadenopathy. Upper abdomen: Please refer to the same day CT for further evaluation. Skeletal structures: There are no lytic or blastic osseous lesions. IMPRESSION: 1. Subtle tree-in-bud nodular opacities within the base of the left lower lobe suggestive of a mild infectious bronchiolitis. 2. Otherwise, no significant change compared to the prior study. 3. 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 4. Severe emphysema 5. No evidence of recurrent malignancy Electronically signed by: Gunner Alvarado M.D. 11/06/2017 2:16 PM Dictated Date/Time: 11/06/2017 1:57 PM
== END | disposition home or self-care (01) ==
LOC: C.CTS 13:11
PROVIDERS: ATTEND Internal Medicine Hematology & Oncology
DX: C34.11 Malignant neoplasm of upper lobe, right bronchus or lung (principal); R91.8 Other nonspecific abnormal finding of lung field; J43.9 Emphysema, unspecified

== ENCOUNTER → 2017-11-13 | Outpatient (CLI) | payer BC ==
[~2017-11-13] MED LIST changes: +POTA-639 PO; -POTA20TA16 PO
[2017-11-13 12:32] LABS: BASO % 0.1 %; BASO ABS # 0.01 K/uL (0-0.2); EOS % 0.7 %; EOS ABS # 0.05 K/uL (0-0.5); HEMATOCRIT 42.5 % (42-52); HEMOGLOBIN 14.9 g/dL (14.0-18.0); IG# 0.13 K/uL (0.00-0.02); LYMPH % 13.1 %; LYMPH ABS # 0.89 K/uL (1.2-3.4); MEAN CELL VOLUME 91.8 fL (80-100); MEAN CORPUSCULAR HEMOGLOBIN 32.2 pg (25-34); MEAN CORPUSCULAR HGB CONC 35.1 g/dl (32-36); MEAN PLATELET VOLUME 9.6 fL (7.4-10.4); MONO % 4.9 %; MONO ABS # 0.33 K/uL (0.11-0.59); NEUT % 79.3 %; NEUT ABS # 5.37 K/uL (1.4-6.5); PLATELET COUNT 213 K/uL (130-400); RED CELL DISTRIBUTION WIDTH CV 14.7 % (11.5-14.5); RED CELL DISTRIBUTION WIDTH SD 49.2 fL (36.4-46.3); WHITE BLOOD COUNT 6.78 K/uL (4.8-10.8)
[2017-11-13 12:46] LABS: ALBUMIN 3.2 gm/dl (3.4-5.0); ALT/SGPT 29 U/L (12-78); AST/SGOT 12 U/L (15-37); BLOOD UREA NITROGEN 30 mg/dl (7-18); CARBON DIOXIDE 23 mmol/L (21-32); CREATININE 1.42 mg/dl (0.60-1.40); GLUCOSE 127 mg/dl (70-99); POTASSIUM 3.6 mmol/L (3.5-5.1); SODIUM 140 mmol/L (136-145)
[2017-11-13 12:48] LABS: ALKALINE PHOSPHATASE 42 U/L (45-117); TOTAL PROTEIN 6.4 gm/dl (6.4-8.2)
== END | disposition home or self-care (01) ==
LOC: C.LABBFT 10:28
PROVIDERS: ATTEND Internal Medicine Hematology & Oncology
DX: C34.11 Malignant neoplasm of upper lobe, right bronchus or lung (principal)

== ENCOUNTER → 2017-11-27 | Outpatient (CLI) | payer BC ==
[2017-11-27 12:59] LABS: BLOOD UREA NITROGEN 27 mg/dl (7-18); CARBON DIOXIDE 24 mmol/L (21-32); CREATININE 1.51 mg/dl (0.60-1.40); GLUCOSE 100 mg/dl (70-99); POTASSIUM 4.1 mmol/L (3.5-5.1); SODIUM 136 mmol/L (136-145)
== END | disposition home or self-care (01) ==
LOC: C.LABBFT 10:24
PROVIDERS: ATTEND Physician Assistant Medical
DX: I51.9 Heart disease, unspecified (principal)

== ENCOUNTER → 2018-03-16 | Day surgery (SDC) | payer BC ==
[2018-03-05 08:43] VITALS: Ht 177.8 cm; Wt 78.6 kg
[~2018-03-16] VITALS: Ht 177.8 cm; Wt 78.6 kg
[~2018-03-16] MED LIST changes: -ALBUAER2 INH; +ATROPINE SULFATE 0.1 MG/ML 5ML SYR IV PRN; +BUPIVACAINE/EPINEPHRINE 0.5% MPF 1:200,000 30 ML VIAL ONE; +CLINDAMYCIN PHOS 150 MG/ML 2 ML VIAL IV SCH; +EpHEDrine SULFATE INJ 50 MG/ML AMP IV PRN; +FENTANYL CITRATE INJ 50 MCG/1 ML 2 ML VIAL IV PRN; +FENTANYL CITRATE INJ 50 MCG/1 ML 2 ML VIAL ONE; +FOLI1TAB8 PO; +HYDROCODONE/ACETAMIN 5/325MG TAB PO PRN; +IBUPROFEN 600 MG TAB PO PRN; +IPRA-64 INH; +IRON PO; +LACTATED RINGER'S 1000ML 1,000 ML IV SCH; +LIDOCAINE HCL 2% 2 ML VIAL (20MG/ML) ONE; +MIDAZOLAM HCL 1 MG/ML 2ML VIAL ONE; +ONDA-170 PO; -ONDA8TAB7 PO; +ONDANSETRON INJ 2 MG/ML 2 ML VIAL IV PRN; +ONDANSETRON INJ 2 MG/ML 2 ML VIAL ONE; -PANT1TAB3 PO; +PANT40TA PO; -PRED20TA PO; +PROPOFOL IV EMULSION 10 MG/ML 20 ML VIAL ONE; -RANO500T PO; +SODIUM CHLORIDE 0.9% 1000ML 1,000 ML IV SCH; -VALA500T60 PO; +VNTHFA/IN INH; -iron tab
--- NOTE | 2018-03-16 07:40 | Discharge Instructions-SurgCtr ---
Discharge Instructions Date of Service Mar 16, 2018. Visit Reason for Visit: Lung Ca; Port Cath In Place Discharge Discharge Diagnosis / Problem: desire to remove mediport Discharge Goals Goal(s): Specific goals Medications Stopped Medications Name(s): all meds stopped last monday03/10/18 except metoprolol. Activity Recommendations Activity Limitations: as noted below Lifting Limitations: gradually increase as tolerated Shower/Bathe: tomorrow Anesthesia . Post Anesthesia Instructions: If you have had General Anesthesia or IV Sedation: * Do not drive today. * Resume driving when surgeon permits. * Do not make important decisions or sign legal documents today. * Call surgeon for: 1. Temperature elevations greater than 101 degrees F. 2. Uncontrollable pain. 3. Excessive bleeding. 4. Persistent nausea and vomiting. 5. Medication intolerance (nausea, vomiting or rash). * For nausea and vomiting use only clear liquids such as: tea, soda, bouillon until nausea subsides, then gradually increase diet as tolerated. * If you have any concerns or questions, call your surgeon's office. If physician is unavailable and it is an emergency, call 911 or go to the nearest emergency room. . Instructions / Follow-Up Instructions / Follow-Up call [phone] if any questions/concerns Diet Recommendations Home Diet: resume previous diet Pending Studies Studies pending at discharge: no Medical Emergencies . Who to Call and When: Medical Emergencies: If at any time you feel your situation is an emergency, please call 911 immediately. . Non-Emergent Contact Non-Emergency issues call your: Primary Care Provider, Surgeon Call Non-Emergent contact if: temperature is above 101, wound has increased drainage, wound has increased redness, wound has increased pain . . "Provider Documentation" section prepared by Jorge Luis Arriaga. .
--- NOTE | 2018-03-16 09:57 | [facility] Post Operative Brief Note ---
Immediate Operative Summary Operative Date Mar 16, 2018. Pre-Operative Diagnosis Lung CA, Port Cath In Place Post-Operative Diagnosis Same Procedure(s) Performed Left Internal Jugular Infusaport Removal Surgeon Dr. Arriaga Survey Analyst Surgeon(s) Elle Estimated Blood Loss 5 cc Findings Consistent with Post-Op Diagnosis Specimens A: Removed Infusaport Anesthesia Type MAC Complication(s) none
[2018-03-16 10:04] VITALS: TEMP 36.3
--- NOTE | 2018-03-16 10:11 | Anesthesia Progress Nt - [facility] ---
Anesthesia Post Op Note Date & Time Mar 16, 2018 at 10:11 Vital Signs Pain Intensity: 0 Vital Signs Past 12 Hours Date Time Temp Pulse Resp B/P (MAP) Pulse Ox O2 Delivery O2 Flow Rate FiO2 03/16/18 10:04 36.3 59 16 133/76 (95) 97 Room Air 03/16/18 07:33 36.8 63 16 159/93 (115) 94 Room Air Notes Mental Status: alert / awake / arousable, participated in evaluation Pt Amnestic to Procedure: Yes Nausea / Vomiting: adequately controlled Pain: adequately controlled Airway Patency, RR, SpO2: stable & adequate BP & HR: stable & adequate Hydration State: stable & adequate Anesthetic Complications: no major complications apparent
--- NOTE | 2018-03-16 10:19 | [facility] Operative Report ---
Operative Report Operative Date Mar 16, 2018. Pre-Operative Diagnosis Lung CA, Port Cath In Place Post-Operative Diagnosis Same Procedure(s) Performed Left Internal Jugular Infusaport Removal Surgeon Dr. Arriaga Alignment Mechanic Surgeon(s) Elle Estimated Blood Loss 5 cc Specimens A: Removed Infusaport Anesthesia Type MAC Complication(s) none Description of Procedure After informed consent was obtained the patient was brought to the operating room placed in supine position. IV sedation was administered by anesthesia. After adequate sedation was obtained the upper chest and neck were sterilely prepped and draped in usual fashion. I began by using Marcaine with epinephrine to inject around the port itself up to the periosteum of the clavicle. I used a 15 blade scalpel to make an incision through his old scar line. I carried this down through the soft tissue using electrocautery. Once we encountered the capsule the Mediport I took down the capsule using cautery. There were Prolene sutures holding the port in place and I cut these using suture scissors and removed the prolenes. As I tried to remove the catheter however it was under a lot of tension. I continue to follow the catheter superiorly towards the clavicle. I was still unable to free it up safely. I was able to palpate the catheter above the clavicle. I injected some additional Marcaine performed a cutdown until I got to the catheter itself. It was diving down in the supraclavicular area towards the subclavian vein. At this point I became uncomfortable with the amount of tension on the catheter. I notified Dr. Almeida who came from the hospital and scrubbed into the case. We used fluoroscopy to identify that there was about [address] We continued use traction as well as freeing up the scar tissue around the catheter itself. Eventually we were able to free it up enough to remove it. The distal end was intact. I did perform fluoroscopy with the C arm at the end of the case to ensure there was no foreign body left behind. I held pressure. There was adequate hemostasis. Dr. Almeida then scrubbed out of the case. I thoroughly irrigated both wounds. I closed the larger wound with 3-0 Vicryl for the deep layers and 4-0 Monocryl for the skin. The small incision I just used 4-0 Monocryl. Dermabond glue was used for dressing. The patient was awakened and transferred recovery in stable condition. I attest to the content of the Intraoperative Record and any orders documented therein. Any exceptions are noted below.
[2018-03-16 10:37] VITALS: BP 143/73; PULSE 51; O2SAT 94
== END | disposition home or self-care (01) ==
LOC: X.SURG 07:13
PROVIDERS: ATTEND Surgery
DX: C34.90 Malignant neoplasm of unspecified part of unspecified bronchus or lung (principal); Z86.711 Personal history of pulmonary embolism; I10 Essential (primary) hypertension; Z91.040 Latex allergy status; J44.9 Chronic obstructive pulmonary disease, unspecified; I25.118 Atherosclerotic heart disease of native coronary artery with other forms of angina pectoris; K21.9 Gastro-esophageal reflux disease without esophagitis; Z85.828 Personal history of other malignant neoplasm of skin; E78.00 Pure hypercholesterolemia, unspecified; Z87.891 Personal history of nicotine dependence; Z79.899 Other long term (current) drug therapy; Z79.82 Long term (current) use of aspirin; Z88.1 Allergy status to other antibiotic agents; Z88.8 Allergy status to other drugs, medicaments and biological substances